=== PATIENT | male | born 2000 | race African-American/Black ===

== ENCOUNTER 2022-07-12 11:10 | Emergency (ER) | payer BC ==
[~2022-07-12] VITALS: Ht 172.7 cm; Wt 49.9 kg
[2022-07-12] MEDS ORDERED: CEFTRIAXONE 500 MG VIAL IM ONE (11:30)
[2022-07-12] MEDS ORDERED: ONDANSETRON HCL 4 MG ORAL DISINTEGRATING TAB PO ONE (11:30)
[2022-07-12] MEDS ORDERED: AZITHROMYCIN 250 MG TAB PO ONE (11:30)
[2022-07-12] MEDS ORDERED: CEFTRIAXONE 1 GM VIAL ONE (11:35)
[2022-07-12] MEDS ORDERED: AZITHROMYCIN 250 MG TAB ONE (11:35)
[2022-07-12] MEDS ORDERED: CEFDINIR300 MG PO (11:40)
[2022-07-12] MEDS ORDERED: DOXYCYCLINE HY100 MG PO (11:40)
[2022-07-12] MEDS ORDERED: NAPROSYN500 MG PO (11:41)
[2022-07-12] MEDS ORDERED: ONDANSETRON HCL 4 MG ORAL DISINTEGRATING TAB ONE (11:44)
[2022-07-12 17:52] LABS: CLARITY,URINE SL CLOUDY (CLEAR); COLOR,URINE AMBER (YELLOW)
[2022-07-12 17:57] LABS: KETONES,URINE NEGATIVE (NEGATIVE); LEUKOCYTE ESTERASE ,URINE TRACE (NEGATIVE); NITRITE,URINE POSITIVE (NEGATIVE); PROTEIN,URINE DIPSTICK >=300 (NEGATIVE); URINE UROBILINOGEN 0.2 mg/dL (0.2 - 1)
[2022-07-12 18:01] LABS: BACTERIA,URINE RARE /HPF; EPITHELIAL CELLS,URINE RARE /LPF; MUCUS,URINE FEW (RARE)
== END 2022-07-12 11:35 | disposition home or self-care (01) ==
LOC: FSED 11:15
DX: A64 Unspecified sexually transmitted disease (principal); N34.2 Other urethritis; Z87.891 Personal history of nicotine dependence
CPT/HCPCS: 81001; 81003; 87086; 87491; 87591; 96372; 99282; J0696; Q0162